=== PATIENT | male | born 1995 | race Caucasian/White ===

== ENCOUNTER 2018-08-22 21:06 | Emergency (ER) | payer MEDICAID ==
[~2018-08-22] VITALS: Ht 185.4 cm; Wt 85.5 kg
[2018-08-22 22:06] VITALS: BP 132/82
== END 2018-08-22 22:35 | disposition home or self-care (01) ==
LOC: EMS 21:09
DX: L01.00 Impetigo, unspecified (principal); L98.9 Disorder of the skin and subcutaneous tissue, unspecified; F19.90 Other psychoactive substance use, unspecified, uncomplicated

== ENCOUNTER 2018-08-24 17:45 | Emergency (ER) | payer MEDICAID ==
[~2018-08-24] VITALS: Ht 185.4 cm; Wt 85.5 kg
[2018-08-24] MEDS ORDERED: KETOROLAC TROMETHAMINE 30 MG/ML VIAL IVP ONE (19:30)
[2018-08-24] MEDS ORDERED: SODIUM CHLORIDE 0.9% 1,000 ML IV ONE (19:30)
[2018-08-24] MEDS ORDERED: ONDANSETRON HCL 4 MG/2 ML VIAL IVP ONE (19:30)
[2018-08-24 21:47] VITALS: BP 112/46
== END 2018-08-24 21:49 | disposition home or self-care (01) ==
LOC: EMS 17:45
DX: M79.10 Myalgia, unspecified site (principal); F19.10 Other psychoactive substance abuse, uncomplicated; R10.9 Unspecified abdominal pain; R11.0 Nausea
CPT/HCPCS: 96374; 96375; 99283; J1885; J2405; J7030